=== PATIENT | male | born 1950 | race Caucasian/White ===

== ENCOUNTER 2018-05-18 17:05 | Observation (INO) | payer MEDICARE, BC ==
[~2018-05-18] VITALS: Ht 170.2 cm; Wt 80.4 kg
--- OUTSIDE RECORDS SUMMARY | 2018-05-18 17:07 | XMS REPORT | Clinical Summary ---
Author Author [facility] Address Unknown Phone Unavailable Care Team Providers Care Mental Health Program Manager Name Role Phone Endy Lozano MD PCP Allergies No Known Allergies Medications End Date Status Medication Sig Dispensed Refills Start Date Active lisinopril Take 20 mg by 0 (PRINIVIL,ZESTRIL) 20 mg mouth daily. tablet Active Problems Not on file Social History Date Tobacco Use Types Packs/Day Years Used Never Assessed Sex Assigned at Date Recorded Not on file Industry Job Start Date Occupation Not on file Not on file Not on file Travel End Travel History Travel Start No recent travel history available. Last Filed Vital Signs Not on file Plan of Treatment Health Maintenance Due Date Last Done Comments COLON CANCER SCREENING 2002 SHINGLES VACCINES (#1) 2002 INFLUENZA VACCINE 09/22/2017 65+ PNEUMOCOCCAL VACCINE 2017 (1 of 2 - PCV13) PNEUMOCOCCAL 2017 POLYSACCHARIDE VACCINE AGE 65 AND OVER Results Not on fileafter 05/17/2017 Insurance Payer Benefit Subscriber ID Type Phone Address Plan / Group [employer] [facility] xxxxxxxxxxxx Exchange EXCHANGE [facility] EXCHANGE [employer] Advance Directives Patient has advance care planning documents on file. For more information, june mendez contact: Rob Clarke [address] [place] [address]
[2018-05-18] MEDS ORDERED: ENALAPRILAT IV INJ 1.25 MG/ML VIAL IV STA (17:20)
[2018-05-18 17:54] LABS: BASOPHILS % 0.2 % (0.0-1.0); EOSINOPHILS # (AUTO) 0.2 (0.0-0.4); EOSINOPHILS % 3.5 % (0.0-6.0); HEMATOCRIT 50.6 % (38.2-49.6); HEMOGLOBIN 17.6 g/dL (14.0-18.0); LYMPHOCYTES % 35.6 % (18.0-39.1); MEAN CORPUSCULAR HEMOGLOBIN 30.1 pg (28-32); MEAN CORPUSCULAR HGB CONC 34.8 g/dL (31-35); MEAN CORPUSCULAR VOLUME 86.5 fL (81-99); MONOCYTES # (AUTO) 0.5 (0.2-0.8); MONOCYTES % 8.1 % (4.4-11.3); NEUTROPHILS % 52.4 % (38.7-80.0); PLATELET COUNT 184 x10e3/uL (140-360); RED BLOOD COUNT 5.85 x10e6/uL (4.3-5.7); RED CELL DISTRIBUTION WIDTH 11.6 % (11.7-14.4)
--- NOTE | 2018-05-18 18:13 | Diagnostic Imaging Report ---
Examination: CT head without contrast Clinical Indication: Headache. Dizziness. Hypertension. Technique: Transaxial noncontrast images from the skull base through the vertex were obtained. Sagittal and coronal reformatted images were done. Dose modulation, iterative reconstruction, and/or weight based adjustment of the mA/kV was utilized to reduce the radiation dose to as low as reasonably achievable. Comparison: None. Findings: Scalp: No abnormalities. Bones: Intact. No fractures. No blastic or lytic lesions. Brain sulci: Appropriate for patient's age. Ventricles: Normal in size and configuration. No hydrocephalus. Extra-axial space: No abnormalities. Parenchyma: No abnormal densities. No masses, hemorrhage, or acute or chronic cortical based vascular insults. Suprasellar region: No abnormalities. Craniocervical junction: The foramen magnum is patent. No Chiari one malformation. Impression: No intracranial abnormality. Signed by: Dr. Clemencia Mckeon M.D. on 05/18/2018 6:09 PM
[2018-05-18 18:16] LABS: ALANINE AMINOTRANSFERASE 23 IU/L (0-55); ALBUMIN 4.3 g/dL (3.5-5.0); ALBUMIN/GLOBULIN RATIO 1.1 (0.8-2.0); ALKALINE PHOSPHATASE 73 IU/L (40-150); ANION GAP 11.7 mmol/L (8-16); BLOOD UREA NITROGEN 15 mg/dL (7-26); BUN/CREATININE RATIO 13 (6-25); CALCIUM 9.2 mg/dL (8.4-10.2); CARBON DIOXIDE 29 mmol/L (22-29); CHLORIDE 100 mmol/L (98-107); CHOL/HDL RATIO 4.1 (3.9-4.7); CHOLESTEROL 227 MD/DL (0-199); CREATININE, SERUM 1.14 mg/dL (0.72-1.25); EST GLOMERULAR FILTRATION RATE > 60 ML/MIN (60-); GLUCOSE 97 mg/dL (74-118); HDL CHOLESTEROL 55 MG/DL (40-60); LDL CHOLESTEROL 139 MG/DL (60-130); POTASSIUM 3.7 mmol/L (3.5-5.1); SODIUM 137 mmol/L (136-145); TRIGLYCERIDES 163 MG/DL (0-149)
[2018-05-18] MEDS ORDERED: ONDANSETRON HCL INJ 2MG/ML 2ML 2 MG/ML VIAL IV PRN (18:30)
[2018-05-18] MEDS ORDERED: ENALAPRILAT IV INJ 1.25 MG/ML VIAL IV PRN (18:30)
[2018-05-18] MEDS ORDERED: SODIUM CHLORIDE FLUSH 10 ML SYR INJ PRN (18:30)
--- OUTSIDE RECORDS SUMMARY | 2018-05-18 18:49 | XMS REPORT | Clinical Summary ---
Author Author [facility] Address Unknown Phone Unavailable Care Team Providers Care Technical Sales Advisor Name Role Phone Endy Lozano MD PCP [...] ID Type Phone Address Plan / Group MD [employer] [facility] xxxxxxxxxxxx Exchange EXCHANGE [facility] [employer]CHANGE [employer] Advance Directives Patient has advance care planning documents on file. For more information, june mendez contact: Rob Clarke [address] [place] [address]
--- OUTSIDE RECORDS SUMMARY | 2018-05-18 18:49 | XMS REPORT ---
Author Author [facility] Address Unknown Phone Unavailable Care Team Providers Care Video Rental Clerk Name Role Phone Efrain ORO Unavailable Unavailable Problems This patient has no known problems. Allergies, Adverse Reactions, Alerts This patient has no known allergies or adverse reactions. Medications This patient has no known medications. Results Test Description Test Time Test Comments Text Results Atomic Results Result Comments CT BRAIN WO 2018-05-18 18:09:00 [place] [address] Patient Name: STEVE HOGUE MR #: [id number] : 1950 Age/Sex: 67/M Req #: [id number] Adm Physician: Ordered by: GRACIE ORO MD Report #: [id number] Location: ER Room/Bed: Procedure: [id number] CT/CT BRAIN WO Exam Date: 05/18/18 Exam Time: 1710 REPORT STATUS: Signed Examination: CT head without contrast Clinical Indication: Headache. Dizziness. Hypertension. Technique: Transaxial noncontrast images from the skull base through the vertex were obtained. Sagittal and coronal reformatted images were done. Dose modulation, iterative reconstruction, and/or weight based adjustment of the mA/kV was utilized to reduce the radiation dose to as low as reasonably achievable. Comparison: None. Findings: Scalp: No abnormalities. Bones: Intact. No fractures. No blastic or lytic lesions. Brain sulci: Appropriate for patient's age. Ventricles: Normal in size and configuration. No hydrocephalus. Extra- axial space: No abnormalities. Parenchyma: No abnormal densities. No masses, hemorrhage, or acute or chronic cortical based vascular insults. Suprasellar region: No abnormalities. Craniocervical junction: The foramen magnum is patent. No Chiari one malformation. Impression: No intracranial abnormality. Signed by: Dr. Clemencia Mckeon M.D. on 05/18/2018 6:09 PM Dictated By: CLEMENCIA RAMIRES MD 08 Transcribed By: FRAN on 05/18/181808 COPY TO: GRACIE ORO MD
[2018-05-18] MEDS: LOSARTAN POTASSIUM 100 MG TAB PO SCH (19:38)
[2018-05-18 20:05] VITALS: BP 168/96
[2018-05-18] MEDS: ATORVASTATIN 20 MG TAB PO SCH (20:24)
[2018-05-18 20:45] VITALS: BP 159/93
[2018-05-18 23:36] VITALS: BP 159/93
[2018-05-19] VITALS (10 sets, daily range): BP systolic 130–182; BP diastolic 67–93
--- NOTE | 2018-05-19 06:50 | NUR ---
rounded with shift mechanic nurse, patient aware of change and in no distress. call banuelos within reach and bed in lowest position
[2018-05-19] MEDS ORDERED: HYDROCHLOROTHIAZIDE 25 MG TAB PO SCH (09:00)
[2018-05-19] MEDS ORDERED: LOSARTAN POTASSIUM 100 MG TAB PO SCH (09:00)
[2018-05-19] MEDS: LOSARTAN POTASSIUM 100 MG TAB PO SCH (09:03)
[2018-05-19] MEDS ORDERED: LORAZEPAM INJ 2 MG/ML VIAL IV ONE (12:00)
[2018-05-19] MEDS ORDERED: LORAZEPAM 0.5 MG TAB PO PRN (15:00)
[2018-05-19] MEDS: HYDROCHLOROTHIAZIDE 25 MG TAB PO SCH ×2 (15:45→20:01)
[2018-05-19] MEDS: AMLODIPINE BESYLATE 5 MG TAB PO SCH (16:45)
--- NOTE | 2018-05-19 18:50 | NUR ---
rounded with rotary surface grinder nurse, patient aware of change and in no distress. call banuelos within reach and bed in lowest position.
[2018-05-19] MEDS: ATORVASTATIN 20 MG TAB PO SCH (20:01)
[2018-05-20 04:30] VITALS: BP 128/77
--- NOTE | 2018-05-20 06:50 | NUR ---
report received from night coordinator nurse, patient resting comfortably and in no distress. Call banuelos within reach and bed in lowest position.
[2018-05-20] MEDS: AMLODIPINE BESYLATE 5 MG TAB PO SCH (08:45)
[2018-05-20] MEDS: LOSARTAN POTASSIUM 100 MG TAB PO SCH (08:45)
[2018-05-20] MEDS: HYDROCHLOROTHIAZIDE 25 MG TAB PO SCH (08:45)
[2018-05-20 10:42] VITALS: BP 169/106
[2018-05-20 10:43] VITALS: BP 169/106
[2018-05-20] MEDS ORDERED: AMLODIPINE BESYL5 MG PO (11:04)
[2018-05-20] MEDS ORDERED: losartan/hctz PO (11:05)
[2018-05-20] MEDS ORDERED: HYDRALAZINE HCL25 MG PO (11:05)
[2018-05-20] MEDS ORDERED: ATIVAN0.5 MG PO (11:06)
[2018-05-20 11:20] VITALS: BP 144/87
--- NOTE | 2018-05-20 11:20 | NUR ---
patient alert and oriented. Discharge instructions given to patient at this time, patient verbalized understanding. IV removed at this time, catheter in tact and small dressing applied. Patient refused wheelchair assistance and will ambulate to personal auto to return home.
== END 2018-05-20 11:30 | disposition home or self-care (01) ==
LOC: ER 17:05 → ERHOLD 18:47 → IMCU 19:46
DX: I16.0 Hypertensive urgency (principal); R51 Headache; I10 Essential (primary) hypertension; Z82.49 Family history of ischemic heart disease and other diseases of the circulatory system; Z82.3 Family history of stroke; F41.9 Anxiety disorder, unspecified
CPT/HCPCS: 36415; 70450; 80053; 80061; 84484; 85025; 99284; G0378 ×3; J2060

== ENCOUNTER 2018-05-23 09:34 | Emergency (ER) | payer MEDICARE, BC ==
[~2018-05-23] VITALS: Ht 170.2 cm; Wt 80.3 kg
[~2018-05-23 09:34] MED LIST: AMLODIPINE BESYL5 MG PO; ATIVAN0.5 MG PO; HYDRALAZINE HCL25 MG PO; losartan/hctz PO
--- OUTSIDE RECORDS SUMMARY | 2018-05-23 09:36 | XMS REPORT | Clinical Summary ---
Author Author [facility] Address Unknown Phone Unavailable Care Team Providers Care Schedule Clerk Name Role Phone Endy Lozano MD PCP Allergies No Known Allergies Medications End Date Status Medication Sig Dispensed Refills Start Date Active lisinopril Take 20 mg by 0 (PRINIVIL,ZESTRIL) 20 mg mouth daily. tablet Active Problems Not on file Encounters Care Team Description Date Type Specialty Denny Wooten DO Dizziness (Primary Dx); Generalized anxiety disorder 05/21/2018 Emergency Emergency Medicine after 05/22/2017 Social History Date Tobacco Use Types Packs/Day Years Used Never Assessed Alcohol Use Drinks/Week oz/Week Comments Defer Sex Assigned at Date Recorded Not on file Industry Job Start Date Occupation Not on file Not on file Not on file Travel End Travel History Travel Start No recent travel history available. Last Filed Vital Signs Time Taken Vital Sign Reading 05/21/2018 7:30 PM CDT Blood Pressure 128/66 05/21/2018 7:30 PM CDT Pulse 89 05/21/2018 5:12 PM CDT Temperature 37.3 C (99.1 F) 05/21/2018 7:30 PM CDT Respiratory Rate 20 05/21/2018 7:30 PM CDT Oxygen Saturation 96% - Inhaled Oxygen - Concentration - Weight - - Height - - Body Mass Index - Plan of Treatment Health Maintenance Due Date Last Done Comments COLON CANCER SCREENING 2002 SHINGLES VACCINES (#1) 2002 65+ PNEUMOCOCCAL VACCINE 2017 (1 of 2 - PCV13) PNEUMOCOCCAL 2017 POLYSACCHARIDE VACCINE AGE 65 AND OVER INFLUENZA VACCINE 09/22/2018 Procedures Comments Procedure Name Priority Date/Time Associated Diagnosis BASIC METABOLIC PANEL Routine 05/21/2018 7:00 PM CDT ESTIMATED GFR Routine 05/21/2018 7:00 PM CDT ECG 12-LEAD STAT 05/21/2018 6:44 PM CDT HC COMPLETE BLD COUNT STAT 05/21/2018 W/AUTO DIFF 5:58 PM CDT after 05/22/2017 Results * Estimated GFR (05/21/2018 7:00 PM CDT) Estimated GFR 48 (A) mL/min/1.73 m2 [facility] Comment: [facility] CatergoryUnitsInte rpretation G1 >=90 Normal or high G2 60-89Mildly decreased [id number] Mildly to moderately decreased [id number] Moderately to severely decreased G4 15-29Severely decreased G5 <15Kidney failure The eGFR was calculated using the Chronic Kidney Disease Epidemiology Collaboration (CKD-EPI) equation. Interpretation is based on recommendations of the National Kidney Foundation-Kidney Disease Outcomes Quality Initiative (NKF-KDOQI) published in 2014. Specimen Plasma specimen Performing Organization Address City/[facility] Phone Number [facility] [id number] [place] [address] [place] [address] PATHOLOGY AND GENOMIC MEDICINE [address] * Basic metabolic panel (05/21/2018 7:00 PM CDT) Sodium 134 (L) 135 - 148 mEq/L [facility] Potassium 3.6 3.5 - 5.0 mEq/L [facility] Chloride 95 (L) 98 - 112 mEq/L [facility] CO2 24 24 - 31 mEq/L [facility] Anion gap 15@ANIO 7 - 15 mEq/L [facility] BUN 38 (H) 8 - 23 mg/dL [facility] Creatinine 1.50 (H) 0.70 - 1.20 mg/dL [facility] Glucose 119 (H) 65 - 99 mg/dL [facility] Calcium 10.0 8.8 - 10.2 mg/dL [facility] Specimen Plasma specimen Performing Organization Address [facility] Phone Number [facility] [email or web address]] [place] [address] [place] [address] PATHOLOGY AND GENOMIC MEDICINE [facility] [address] [place] [address] [facility] * ECG 12 lead (05/21/2018 6:44 PM CDT) Ventricular rate 95 [facility] Atrial rate 95 [facility] MO interval 138 [facility] QRSD interval 80 [facility] QT interval 354 [facility] QTC interval 444 [facility] P axis 1 67 [facility] QRS axis 1 -23 [facility] T wave axis 70 [facility] EKG impression Normal sinus [facility] rhythm-Nonspecific ST abnormality-Abnormal ECG-In automated comparison with ECG of 26-APR-2016 14:42,-No significant change was found- Narrative Performed At Performing Organization Address City/State/Zipcode Phone Number [facility] [address] [place] [address] * CBC with platelet and differential (05/21/2018 5:58 PM CDT) WBC 8.94 4.50 - 11.00 k/uL [facility] RBC 5.95 4.40 - 6.00 m/uL [facility] HGB 17.6 14.0 - 18.0 g/dL [facility] HCT 50.2 41.0 - 51.0 % [facility] MCV 84.4 82.0 - 100.0 fL [facility] MCH 29.6 27.0 - 34.0 pg [facility] MCHC 35.1 31.0 - 37.0 g/dL [facility] RDW - SD 34.6 (L) 37.0 - 55.0 fL [facility] MPV 9.3 8.8 - 13.2 fL [facility] Platelet count 183 150 - 400 k/uL [facility] Nucleated RBC 0.00 /100 WBC [facility] Neutrophils 70.1 (H) 39.0 - 69.0 % [facility] Lymphocytes 20.0 (L) 25.0 - 45.0 % [facility] Monocytes 8.6 0.0 - 10.0 % [facility] Eosinophils 0.9 0.0 - 5.0 % [facility] Basophils 0.2 0.0 - 1.0 % [facility] Specimen Blood Performing Organization Address City/State/Zipcode Phone Number [facility] [place] [id number] [place] [address] [place] [address] PATHOLOGY AND GENOMIC MEDICINE [facility] [address] [place] [address] [facility] after 05/22/2017 Insurance Payer Benefit Subscriber ID Type Phone Address Plan / Group BCBS BCBS xxxxxxxxxxxx PPO CHOICE PPO/FEDERA L EMPL PPO MEDICARE MEDICARE xxxxxxxxxx Medicare [place], [place] PART A AND B Advance Directives Patient has advance care planning documents on file. For more information, june mendez contact: [facility] [address] [place] [address]
[2018-05-23] MEDS ORDERED: LOSARTAN-HCTZ1 EAC1 PO (09:49)
== END 2018-05-23 09:54 | disposition home or self-care (01) ==
LOC: ER 09:34
DX: I10 Essential (primary) hypertension (principal)
CPT/HCPCS: 99282

== ENCOUNTER 2018-11-23 09:58 | Observation (INO) | payer MEDICARE, BC ==
[~2018-11-23] VITALS: Ht 170.2 cm; Wt 75.7 kg
[~2018-11-23 09:58] MED LIST changes: +LOSARTAN-HCTZ1 EAC1 PO
[2018-11-23] MEDS ORDERED: SODIUM CHLORIDE 0.9% 1000ML 1,000 ML IV STA (10:01)
[2018-11-23] MEDS ORDERED: ASPIRIN 81 MG CHEW TAB PO ONE ×2 (10:15→11:30)
[2018-11-23 10:21] LABS: BASOPHILS % 0.1 % (0.0-1.0); EOSINOPHILS # (AUTO) 0.1 (0.0-0.4); EOSINOPHILS % 1.3 % (0.0-6.0); HEMATOCRIT 42.1 % (38.2-49.6); HEMOGLOBIN 14.9 g/dL (14.0-18.0); LYMPHOCYTES # (AUTO) 1.1 (1.0-3.2); LYMPHOCYTES % 15.8 % (18.0-39.1); MEAN CORPUSCULAR HEMOGLOBIN 30.4 pg (28-32); MEAN CORPUSCULAR HGB CONC 35.4 g/dL (31-35); MEAN CORPUSCULAR VOLUME 85.9 fL (81-99); MONOCYTES # (AUTO) 0.5 (0.2-0.8); MONOCYTES % 7.2 % (4.4-11.3); NEUTROPHILS # (AUTO) 5.2 (2.1-6.9); NEUTROPHILS % 75.3 % (38.7-80.0); PLATELET COUNT 196 x10e3/uL (140-360); RED CELL DISTRIBUTION WIDTH 11.5 % (11.7-14.4)
[2018-11-23 10:28] LABS: AMPHETAMINES SCREEN,URINE NEGATIVE (NEGATIVE); BENZODIAZEPINES SCREEN,URINE NEGATIVE (NEGATIVE); PHENCYCLIDINE SCREEN,URINE NEGATIVE (NEGATIVE)
[2018-11-23 10:39] LABS: ALANINE AMINOTRANSFERASE 23 IU/L (0-55); ALBUMIN 4.2 g/dL (3.5-5.0); ALBUMIN/GLOBULIN RATIO 1.2 (0.8-2.0); ALKALINE PHOSPHATASE 68 IU/L (40-150); ANION GAP 12.7 mmol/L (8-16); BLOOD UREA NITROGEN 16 mg/dL (7-26); BUN/CREATININE RATIO 15 (6-25); CALCIUM 9.8 mg/dL (8.4-10.2); CARBON DIOXIDE 27 mmol/L (22-29); CHLORIDE 102 mmol/L (98-107); CREATINE KINASE 124 IU/L (30-200); CREATININE, SERUM 1.09 mg/dL (0.72-1.25); EST GLOMERULAR FILTRATION RATE > 60 ML/MIN (60-); GLUCOSE 102 mg/dL (74-118); POTASSIUM 3.7 mmol/L (3.5-5.1); SODIUM 138 mmol/L (136-145)
--- NOTE | 2018-11-23 10:54 | Diagnostic Imaging Report ---
EXAMINATION: Head CT HISTORY: Dizziness,, feeling faint, hypertension. COMPARISON: Head CT 05/18/2018 TECHNIQUE: Multidetector axial images were obtained without contrast from the foramen magnum to the vertex . The images were reconstructed using brain and bone algorithms. Thin section brain images were reformatted into coronal and sagittal planes. Image quality: Motion/streaking artifact limits the evaluation of the skull base and posterior cranial fossa. Dose modulation, iterative reconstruction, and/or weight based adjustment of the mA/kV was utilized to reduce the radiation dose to as low as reasonably achievable. FINDINGS: Parenchyma: 1. No abnormal densities. 2. No mass or hemorrhage. No CT evidence of acute territorial vascular insult. Extra-axial spaces:No abnormal density. No extra-axial fluid collections Brain volume: Normal for age. Ventricles: No hydrocephalus or displacement. Arteries: No density suggestive of thrombus. Dural sinuses: No abnormal density. Extra-axial spaces: No abnormal density. Foramen magnum: No mass, Chiari malformation, or basilar invagination. Sella: No obvious mass. Paranasal/mastoid sinuses: Imaged portions unremarkable. Skull/Scalp: No lytic or blastic lesions. No fractures. IMPRESSION: No intracranial abnormalities, particularly no hemorrhage. Unchanged compared to head CT of 05/18/2018. Signed by: Dr. Michaela Augustine M.D. on 11/23/2018 10:51 AM
[2018-11-23] MEDS ORDERED: SODIUM CHLORIDE 0.9% 1000ML 1,000 ML IV SCH (11:24)
[2018-11-23] MEDS ORDERED: ONDANSETRON HCL INJ 2MG/ML 2ML 2 MG/ML VIAL IV PRN (13:00)
[2018-11-23] MEDS ORDERED: MELATONIN 5 MG TABLET PO PRN (13:00)
[2018-11-23] MEDS ORDERED: HYDROCODONE/APAP 5MG-325MG TAB PO PRN (13:00)
[2018-11-23] MEDS ORDERED: ACETAMINOPHEN 325 MG TAB PO PRN (13:00)
[2018-11-23] MEDS ORDERED: HYDRALAZINE HCL 20 MG/ML VIAL IV PRN (13:00)
[2018-11-23 13:10] VITALS: BP 162/87
[2018-11-23 13:24] VITALS: BP 162/87
[2018-11-23 13:34] VITALS: BP 162/87
[2018-11-23] MEDS ORDERED: PAXIL10 MG (15:46)
--- NOTE | 2018-11-23 16:25 | NUR ---
Received patient from OBS. Awake and alert x4. Respiration even and unlabored without SOB. Call light in reach.
[2018-11-23 18:34] LABS: CREATINE KINASE MB 1.4 ng/mL (0-5.0)
[2018-11-23 19:00] VITALS: BP 181/88
--- NOTE | 2018-11-23 19:09 | NUR ---
Report given to fast food shift lead. Respiration even and unlabored without SOB. Call light in reach.
--- NOTE | 2018-11-23 19:26 | NUR ---
Received report from previous nurse. Call light within reach. at bedside. Patient in bed.
[2018-11-23 19:45] LABS: INR 0.94; PROTHROMBIN TIME 13.1 seconds (11.9-14.5)
[2018-11-23 19:46] LABS: PARTIAL THROMBOPLASTIN TIME 28.6 seconds (23.8-35.5)
--- NOTE | 2018-11-23 20:00 | NUR ---
Patient is leaving to CT. Patient in no pain or distress. Patient left via wheelchair.
[2018-11-23] MEDS ORDERED: IOPAMIDOL 370 MG/ML 200 ML INFUS..BTL INJ ONE (20:04)
[2018-11-23] MEDS ORDERED: SODIUM CHLORIDE 0.9% 50ML 50 ML ONE (20:04)
--- NOTE | 2018-11-23 20:27 | NUR ---
patient arrived back from CT. Patient in no pain or distress.
[2018-11-23 20:54] VITALS: BP_SYST 166; BP_SYST 181; BP_DIAS 88
[2018-11-23 21:39] LABS: BILIRUBIN,URINE NEGATIVE (NEGATIVE); CLARITY,URINE CLEAR (CLEAR); KETONES,URINE NEGATIVE (NEGATIVE); LEUKOCYTE ESTERASE ,URINE NEGATIVE (NEGATIVE); NITRITE,URINE NEGATIVE (NEGATIVE); PROTEIN,URINE DIPSTICK NEGATIVE (NEGATIVE); URINE UROBILINOGEN 0.2 mg/dL (0.2 - 1)
[2018-11-23 21:40] LABS: COLOR,URINE COLORLESS (YELLOW)
[2018-11-23] MEDS ORDERED: LORAZEPAM INJ 2 MG/ML VIAL IV STA (22:00)
--- NOTE | 2018-11-23 22:12 | Diagnostic Imaging Report ---
EXAM: CT Chest WITH contrast 11/23/2018 7:02 PM INDICATION: Pulmonary embolism. COMPARISON: None TECHNIQUE: Chest was scanned utilizing a multidetector helical scanner from the lung apex through the level of the adrenal glands without administration of IV contrast. Coronal and sagittal reformations were obtained. Pulmonary embolism protocol was performed. IV CONTRAST: 100 mL isovue 300 RADIATION DOSE: Total DLP: 555.95 mGy*cm Estimated effective dose: (DLP x 0.014 x size factor) mSv COMPLICATIONS: None FINDINGS: LINES/ TUBES: None. LUNGS AND AIRWAYS: Filling defects within the posterior right lower lobe pulmonary arteries on image 71 and 72 series 2 consistent with pulmonary images embolism. PLEURA: The pleural spaces are clear. HEART AND MEDIASTINUM: The thyroid gland is normal. No mediastinal, hilar or axillary lymphadenopathy. The heart is normal in size.. There is no pericardial effusion. UPPER ABDOMEN: Limited non-contrast views of the upper abdomen show no abnormality within the visualized liver, spleen, pancreas, or kidneys. The adrenal glands are normal. BONES: There are degenerative changes in the thoracic spine. SOFT TISSUES: Unremarkable. IMPRESSION: Acute pulmonary embolism involving posterior right lower lobe pulmonary arteries. Dr. Dolan was notified] 9:40 PM on 11/23/2018. Signed by: Dr. Ekta Mcgraw M.D. on 11/23/2018 10:08 PM
[2018-11-23] MEDS ORDERED: LORAZEPAM 0.5 MG TAB PO PRN (22:30)
[2018-11-23] MEDS ORDERED: LOSARTAN POTASSIUM 100 MG TAB PO SCH (22:30)
[2018-11-23] MEDS: PAROXETINE HCL 20 MG TAB PO SCH (22:30)
[2018-11-23 22:32] VITALS: BP 137/85
[2018-11-23] MEDS: APIXABAN 5 MG TABLET PO SCH (22:46)
[2018-11-24] VITALS (9 sets, daily range): BP systolic 119–172; BP diastolic 68–85
--- NOTE | 2018-11-24 01:58 | Consultation ---
DATE OF CONSULTATION: 11/23/2018 Cardiac Consultation REASON FOR CONSULTATION: Near syncope. HISTORY: This is a 67-year-old gentleman diagnosed with hypertension 6 months ago, very physically active. He was here at this institution. He was dismissed home on 3 medications, amlodipine 5 mg a day, hydralazine 25 mg t.i.d., and losartan/hydrochlorothiazide 100/25 one tablet a day. This caused him severe hypotension. He was seen by his physician and he has decreased to amlodipine 5 mg a day, and he noted him to be very anxious man, so I started him on Paxil 10 mg a day. The patient 2 weeks ago had radical prostatectomy in [facility]. He was started on Cialis 7.5 mg a day and increased to 25 mg a day. The patient noted he is having several episodes of near blanking out and vision disturbance and not feeling well. He noted also his blood pressure to be elevated. He came to the emergency room. He had CT head, which reported showing no major abnormality. His blood pressure was 160/80. He is very anxious and this would probably let his blood pressure to go by far much higher. Regardless, no arrhythmias noted. Admitted for further management. Cardiac consultation is obtained. In his chart, I cannot find his EKG; however, his telemetry showed normal sinus rhythm. He had carotid Doppler, which showed no major abnormality. REVIEW OF SYSTEMS: GENERAL: No fever. No chills. HEENT: No vision problem. No hearing problem. PULMONARY AND CARDIAC: No cough. No hemoptysis. No palpitation. No orthopnea. No paroxysmal nocturnal dyspnea. GI: No hematemesis. No melena. : Having problem with urination and having erectile dysfunction. SOCIAL HISTORY: He is . He is nonsmoker and non-alcohol drinker. He owns a [employer]. PAST MEDICAL HISTORY: 1. Hypertension. 2. Radical prostatectomy. 3. Chronic severe headache all his life. FAMILY HISTORY: Father at age 85 of old age. Mother at age 85 with tumor. Two brother, one brother hypertensive, one sister, three healthy children except. PHYSICAL EXAMINATION: VITAL SIGNS: Height of 5 feet 7 inches, weight of 167 pounds, blood pressure 160/80, heart rate of 70, respiratory rate of 18. HEENT: Pupils are equal and reactive. NECK: No elevation of jugular venous pulsation. No bruit. CHEST: Clear to auscultation and percussion. HEART: PMI in the fifth left intercostal space. Normal first and second heart sounds. ABDOMEN: Soft with good bowel sounds. EXTREMITIES: No cyanosis, no clubbing, no edema. No signs of deep venous thrombosis. NEUROLOGIC: Awake, alert, and oriented. No motor or sensory deficits. LABORATORY DATA: Sodium of 138, potassium 3.7, BUN of 16, creatinine of 1.09. White blood cell count of 6.9, hemoglobin of 14.9, hematocrit 42%, and platelet count of 196,000. EKG not available. There is no chest x-ray. CT head showed no major abnormalities. IMPRESSION AND PLAN: 1. Hypertension. 2. Anxiety. 3. Recent radical prostatectomy on October 29. Oakes catheter on November 08. 4. Near syncope, possible related to Cialis use or variation of blood pressure. I doubt hypertension to be the cause of his symptoms. Cardiac hicks my recommendation, observation on telemetry. His echo and cardiogram are already normal. The patient needs to have chest x-ray. He needs to have CT chest just to rule out the remote probability of pulmonary emboli with radical prostatectomy. Observe blood pressure off medication and observe him on telemetry. Repeat lab. Differential diagnosis are discussed and explained. MD YASMIN Soria/MARIANNE /[id number]
[2018-11-24 02:47] LABS: CREATINE KINASE MB 1.1 ng/mL (0-5.0)
[2018-11-24 05:59] LABS: BASOPHILS % 0.2 % (0.0-1.0); EOSINOPHILS # (AUTO) 0.1 (0.0-0.4); EOSINOPHILS % 2.6 % (0.0-6.0); HEMATOCRIT 38.1 % (38.2-49.6); HEMOGLOBIN 13.4 g/dL (14.0-18.0); LYMPHOCYTES # (AUTO) 1.5 (1.0-3.2); LYMPHOCYTES % 29.6 % (18.0-39.1); MEAN CORPUSCULAR HEMOGLOBIN 30.4 pg (28-32); MEAN CORPUSCULAR HGB CONC 35.2 g/dL (31-35); MEAN CORPUSCULAR VOLUME 86.4 fL (81-99); MONOCYTES # (AUTO) 0.5 (0.2-0.8); MONOCYTES % 9.9 % (4.4-11.3); NEUTROPHILS # (AUTO) 2.8 (2.1-6.9); NEUTROPHILS % 57.3 % (38.7-80.0); PLATELET COUNT 166 x10e3/uL (140-360); RED BLOOD COUNT 4.41 x10e6/uL (4.3-5.7); RED CELL DISTRIBUTION WIDTH 11.6 % (11.7-14.4)
[2018-11-24 06:43] LABS: ALANINE AMINOTRANSFERASE 18 IU/L (0-55); ALBUMIN 3.3 g/dL (3.5-5.0); ALBUMIN/GLOBULIN RATIO 1.1 (0.8-2.0); ALKALINE PHOSPHATASE 57 IU/L (40-150); ANION GAP 10.6 mmol/L (8-16); BLOOD UREA NITROGEN 16 mg/dL (7-26); BUN/CREATININE RATIO 16 (6-25); CALCIUM 8.9 mg/dL (8.4-10.2); CARBON DIOXIDE 27 mmol/L (22-29); CHLORIDE 105 mmol/L (98-107); CHOLESTEROL 176 MD/DL (0-199); CREATININE, SERUM 0.98 mg/dL (0.72-1.25); EST GLOMERULAR FILTRATION RATE > 60 ML/MIN (60-); GLUCOSE 98 mg/dL (74-118); HDL CHOLESTEROL 44 MG/DL (40-60); LDL CHOLESTEROL 119 MG/DL (60-130); POTASSIUM 3.6 mmol/L (3.5-5.1); SODIUM 139 mmol/L (136-145); TRIGLYCERIDES 64 MG/DL (0-149)
--- NOTE | 2018-11-24 06:44 | History and Physical ---
CHIEF COMPLAINT: Dizziness, elevated blood pressure. HISTORY OF PRESENT ILLNESS: This is a 67-year-old male, very nice and pleasant, has a history of anxiety disorder, had a history of prostate cancer many months ago. He reportedly had a resection performed in the [facility], had a Oakes catheter for significant number of weeks, but recently removed last month. Follows up with a urologist in the [facility]. Also, history of hypertension. He came into the ED after he reports having a presyncopal episode that occurred during work today. Reports he felt very lightheaded and dizzy, but did not feel like he wanted to pass out. According to the history, apparently the patient has had this similar problem in the past. He was diagnosed with anxiety and was given some Ativan. He was very compliant with his antihypertensive medications as he was given them, but he noticed that his blood pressure would drop tremendously and he stopped taking it several months ago. He now reports to the emergency room, found to have elevated blood pressure systolically 192. He was given some oral antihypertensive medications. Right now, his current blood pressure is 137/85. During my evaluation, the patient had a panic disorder, in which he was very anxious, he is worried about his blood pressure. I stopped his IV fluids and gave him a little small dose of Ativan 0.5 mg IV x1. After further discussion, the reports that he has a history of anxiety. His CT of chest showed acute pulmonary embolism. When I gave him that news, the patient was very anxious and was very concerned. The patient was seen and evaluated at bedside on the medical floor. He is currently doing much better after seeing him twice at this time. REVIEW OF SYSTEMS: 1. Pertinent positives: Lightheadedness, dizziness. 2. Pertinent negatives: Denies any chest pain, palpitation, nausea, vomiting, diarrhea, dysuria, hematuria, frequency, urgency, abdominal pain, headache, shortness of breath, cough, congestion, fever, or any other complaints. The rest of 14-point review of systems have been reviewed with the patient and are negative. ALLERGIES: NO KNOWN DRUG ALLERGIES. HOME MEDICATIONS: He takes Paxil 10 mg daily, losartan/hydrochlorothiazide 100/25 mg one tab p.o. daily, amlodipine 5 mg p.o. b.i.d., hydralazine 25 mg p.o. t.i.d., lorazepam 0.5 mg p.o. q.i.d. p.r.n. for anxiety. PAST MEDICAL HISTORY: Hypertension, anxiety, history of prostate cancer, status post resection performed in June of 2018. PAST SURGICAL HISTORY: He had a prostate resection reportedly due to prostate cancer, not on any chemotherapy or any radiation. PAST FAMILY HISTORY: Hypertension and diabetes. SOCIAL HISTORY: No drugs. No alcohol. Does not smoke. He is . He has children. He is a chiropractor. PHYSICAL EXAMINATION: VITAL SIGNS: Temperature 98.7, pulse 84, respiratory rate 19, blood pressure currently 137/85, and pulse ox 96% on room air. GENERAL: Not in acute distress. Alert and oriented x3. Cooperative on examination. HEENT: Head; normocephalic and atraumatic. Eyes; pupils are equal, round, and reactive to light bilaterally. Extraocular movements intact bilaterally. NECK: Supple. Good range of motion. PULMONARY: Clear to auscultation bilaterally. No wheezing, no rales, no rhonchi, no crackles appreciated. CARDIOVASCULAR: Positive S1, S2. No murmurs, rubs, or gallops. ABDOMEN: Soft, nondistended, and nontender to palpation. Bowel sounds present. MUSCULOSKELETAL: Strength is 5/5 throughout. No evidence of any muscle deficits on examination. No weakness appreciated. NEUROLOGIC: Cranial nerves II through XII grossly intact. No evidence of any neurological deficits on exam. SKIN: Intact. Warm to touch. Good cap refill. PSYCHIATRIC: Normal affect and mood. EXTREMITIES: No edema. Good range of motion throughout. LABORATORY FINDINGS: Show white count 6.9, hemoglobin 14.9, hematocrit 42, platelets of 196. Coagulation; PT 13, INR 0.94, PTT 28.6, D-dimer 2.5. Chemistry; sodium 138, potassium 3.7, chloride 102, bicarb 27, anion gap is 12, BUN is 16, creatinine is 1, glucose 102, calcium 9.8, total bilirubin was 1.3, AST 25, ALT 23, alk phos 68, CK 124. Troponins are negative. Total protein 7.7, albumin is 4.2. Urinalysis negative. Urine drug screen negative. MICROBIOLOGY: None. IMAGING STUDIES: CT of brain was found to be negative. CT, PE protocol found to be with acute pulmonary embolism involving the posterior right lower lobe arteries. Carotid ultrasound is pending. A 2D echo is pending. IMPRESSION: 1. Hypertensive urgency, likely secondary to underlying generalized anxiety. 2. History of anxiety with panic disorder. 3. Acute pulmonary embolism. 4. History of prostate cancer, currently not on any treatment in which he reports now all clear. PLAN: At this time, the patient was very anxious during my examination. He was given Ativan 0.5 mg IV x1, in which he calmed down. Apparently, he has a history of panic disorder in the past. We will go ahead and put him on Ativan 0.5 mg p.o. t.i.d. p.r.n. for anxiety. Restart his Paxil. In terms of his antihypertensive medications, we will just go ahead and put him on a low-dose of losartan 50 mg p.o. b.i.d. Stop IV fluids. He will be on p.r.n. hydralazine as needed. In terms of his acute pulmonary embolism, I will go ahead and start him on Eliquis 10 mg p.o. b.i.d. for loading dose for 7 days and then 5 mg p.o. b.i.d. thereafter. I did discuss with the patient about any kind of bleeding, hemoptysis, hematemesis, GI bleeds, or anything or any hematuria, which he currently denies any sort of bleeding disorder at this time or any kind of active bleeding. I did get Hematology involved as well to come further evaluate. Cardiology was consulted for his underlying syncope as well and a carotid ultrasound, 2D echo have been ordered. We will start him on a regular diet. Encourage ambulation. He is on Eliquis for underlying DVT and also acute PE treatment. At this time, I discussed plan of care with the patient, family at bedside including the nursing staff and they all verbalized understanding and agrees to plan of care. I did give him some melatonin for sleeping aid as well. MD KAYLIN Reese/MARIANNE /[id number]
--- NOTE | 2018-11-24 07:19 | NUR ---
Patient in bed. Call light within reach. Gave report to oncoming nurse.
[2018-11-24] MEDS: APIXABAN 5 MG TABLET PO SCH ×2 (08:25→17:00)
[2018-11-24] MEDS ORDERED: AMLODIPINE BESYLATE 5 MG TAB ONE (08:44)
[2018-11-24] MEDS: AMLODIPINE BESYLATE 5 MG TAB PO SCH ×2 (08:54→21:56)
[2018-11-24] MEDS: PAROXETINE HCL 20 MG TAB PO SCH (08:55)
[2018-11-24] MEDS ORDERED: ASPIRIN 325 MG TAB PO SCH (09:00)
--- NOTE | 2018-11-24 11:02 | NUR ---
MD CHRIS INTO SEE PT, DISCUSSED POC
[2018-11-24] MEDS ORDERED: LORAZEPAM 1 MG TAB PO PRN (11:15)
[2018-11-24] MEDS ORDERED: LORAZEPAM 0.5 MG TAB PO ONE (12:00)
--- NOTE | 2018-11-24 12:20 | Progress Note ---
DATE: 11/24/2018 Medicine Progress Note SUBJECTIVE: The patient is much more calmer this morning. He did feel like he was a little bit more anxious just a little bit more when he woke up, but he was given some Ativan and now he has improved tremendously. He has no other complaints. No chest pain. No palpitations. His blood pressure was slightly elevated in which he was concerned, but was given some Ativan to see if that will help him calmed down. PHYSICAL EXAMINATION: VITAL SIGNS: Temperature is 97.8, pulse 73, respiratory rate is 18, blood pressure is 172/84, pulse ox 97% on room air. GENERAL: No acute distress, alert and oriented x3. Cooperative on examination. HEENT: Head is normocephalic and atraumatic. Eyes; pupils are equal, round, and reactive to light bilaterally. Extraocular movements are intact bilaterally. NECK: Supple. Good range of motion. Throat; no evidence of erythema or exudates in the posterior pharynx. Has poor dentition. PULMONARY: Clear to auscultation bilaterally. No wheezing, rales, or rhonchi. No crackles appreciated. CARDIOVASCULAR: Positive S1, S2. No murmurs, rubs, or gallops appreciated. ABDOMEN: Soft, nondistended, and nontender to palpation. Bowel sounds present. MUSCULOSKELETAL: Strength is 5/5 throughout. No evidence of any muscle deficits on examination. No weakness appreciated. NEUROLOGICAL: Cranial nerve II through XII grossly intact. No evidence of any neurological deficits on exam. SKIN: Intact. Warm to touch. Good cap refill. PSYCHIATRIC: Normal affect and mood. EXTREMITIES: No edema. Good range of motion throughout. LAB FINDINGS: Show white count 4.9, hemoglobin 13, hematocrit 38, and platelets 166. Chemistry; sodium 139, potassium 3.6, chloride 105, bicarb 27, anion gap of 10, BUN 16, creatinine 0.98, glucose 98, calcium 8.9. LFTs reviewed and stable. Albumin 3.3. TSH is 1.5. Troponins were all negative. IMAGING STUDIES: Reviewed. CT chest shows acute pulmonary embolism. CT brain was negative. Carotid Doppler is pending. IMPRESSION: 1. Hypertension urgency, likely secondary to underlying generalized anxiety. 2. History of anxiety with panic disorder. 3. Acute pulmonary embolism. 4. History of prostate cancer, currently not on any treatment which he reports now all negative. PLAN: At this time, his blood pressure is slightly elevated this morning, but I feel like this is probably from his anxiety in which he really has p.r.n. Ativan, which he has received one dose this morning. He will continue with his amlodipine that he takes at home 5 mg twice a day. We are going to monitor his blood pressure very closely. In relation to his anxiety and panic disorder, I will go ahead and restart him back on his Paxil. He is on p.r.n. Ativan. I will go ahead and get a Psychiatry consultation. I feel this will be very beneficial for the patient. In relation to his pulmonary embolism, he is on the loading dose of Eliquis 10 mg twice a day for seven total days. He has received his 1st dose last night. He will go 5 mg twice daily thereafter and Hematology was consulted. As per cardiology, there was a carotid ultrasound and a 2D echo, which is still pending. He will be on a regular diet, encourage ambulation. He is on Eliquis for DVT prophylaxis as well as PE treatment. I discussed plan of care with the patient, nursing staff at bedside and they verbalized understanding. MD KAYLIN Reese/MARIANNE /[id number]
[2018-11-24] MEDS ORDERED: ONDANSETRON HCL 4 MG ORAL DISINTEGRATING TAB PO PRN (13:15)
--- NOTE | 2018-11-24 14:00 | NUR ---
AMBULATING IN HALLWAY, STEADY GAIT
[2018-11-24] MEDS ORDERED: CLONAZEPAM 0.5 MG TAB PO PRN (17:15)
--- NOTE | 2018-11-24 18:01 | NUR ---
ZUNILDA PINA INTO SEE PT, DISCUSSED POC
--- NOTE | 2018-11-24 19:00 | NUR ---
Received report from previous nurse. Call light within reach. Patient in bed.
[2018-11-24] MEDS: CLONAZEPAM 0.5 MG TAB PO SCH (21:56)
[2018-11-25] VITALS: BP 129/82
--- NOTE | 2018-11-25 00:58 | Consultation ---
DATE OF CONSULTATION: 11/24/2018 Psychiatric Consultation The patient is evaluated and events noted. REASON FOR CONSULTATION: To evaluate the patient's anxiety. HISTORY OF PRESENT ILLNESS: The patient is a 67-year-old male admitted to the hospital for dizziness and hypertension. Psychiatric consultation is called to evaluate the patient's mood. As per medical record, the patient has a history of anxiety disorder, prostate cancer, hypertension. Upon evaluation today, the patient was found to be sitting in the room. He is alert, awake, and oriented to situation. He claims that he is hospitalized and has been feeling anxious and stressed due to his health issues. He recently received Ativan 0.5 mg, but did not last long. It has recently been increased. The patient claims he was taking Paxil from his primary care doctor, but because he did not have much stressors at home that he could not tell if the medication was working or not. The patient denies any depression. He denies any feelings of hopelessness or helplessness. He denies any hallucination. He denies any suicidal ideation. He reports sleeping and eating okay. The patient is anxious and worry about new medication in general. Had an extensive discussion with the patient regarding his medication. He finally agrees that he would like to get Klonopin to take in addition to Paxil. He denies any hallucination. He is calm and cooperative at this time. PAST PSYCHIATRIC HISTORY: The patient denies past psychiatric history. He denies past suicide attempts. He denies alcohol or drug use. FAMILY HISTORY: The patient denies. SOCIAL HISTORY: The patient lives with his and 3 kids. His previous job was a chiropractor. MENTAL STATUS EXAM: The patient is an elderly male. He is alert, awake, and oriented to situation. Mood is anxious. He denies any suicidal or homicidal ideation. He denies any hallucination. Affect congruent with mood. Thought process is concrete. No delusion elicited. Insight and judgment are fair. Memory appears to be grossly intact. CURRENT MEDICATIONS: 1. Amlodipine. 2. Eliquis. 3. Paxil 10 mg p.o. daily. 4. Ativan 1 mg p.o. 3 times a day. 5. Acetaminophen. 6. [place]. 7. Hydralazine. 8. Melatonin. 9. Zofran. CURRENT LABS: WBC 4.94, RBC 4.41, hemoglobin 13.4, hematocrit 38.1, platelets 166. Sodium 139, potassium 3.6, chloride 105, CO2 of 27, BUN 16, creatinine 0.98, AST 20, ALT 18. OBJECTIVE: VITAL SIGNS: Currently blood pressure 137/83, heart rate 70, respiratory 18, pulse ox 98%. ASSESSMENT: Generalized anxiety disorder. PLAN: 1. Discontinue Ativan p.r.n. 2. Add Klonopin 0.5 mg p.o. q.12 hours. 3. Add Klonopin 0.5 mg p.o. q.6 hours p.r.n. 4. Continue Paxil 10 mg p.o. daily. 5. Supportive therapy. 6. Monitor for mood. Thank you for this consultation. Dictated by Dianna Arciniega PA-C Ellie Welch MD QTV/MODL /[id number]
[2018-11-25 04:00] VITALS: BP 118/78
[2018-11-25 05:54] LABS: BASOPHILS % 0.2 % (0.0-1.0); EOSINOPHILS # (AUTO) 0.2 (0.0-0.4); EOSINOPHILS % 3.3 % (0.0-6.0); HEMATOCRIT 41.4 % (38.2-49.6); HEMOGLOBIN 14.4 g/dL (14.0-18.0); LYMPHOCYTES # (AUTO) 1.6 (1.0-3.2); LYMPHOCYTES % 27.2 % (18.0-39.1); MEAN CORPUSCULAR HGB CONC 34.8 g/dL (31-35); MEAN CORPUSCULAR VOLUME 86.3 fL (81-99); MONOCYTES # (AUTO) 0.6 (0.2-0.8); MONOCYTES % 9.4 % (4.4-11.3); NEUTROPHILS # (AUTO) 3.5 (2.1-6.9); NEUTROPHILS % 59.7 % (38.7-80.0); PLATELET COUNT 182 x10e3/uL (140-360); RED CELL DISTRIBUTION WIDTH 11.4 % (11.7-14.4)
[2018-11-25 06:08] LABS: BLOOD UREA NITROGEN 15 mg/dL (7-26); BUN/CREATININE RATIO 15 (6-25); CALCIUM 9.4 mg/dL (8.4-10.2); CARBON DIOXIDE 29 mmol/L (22-29); CHLORIDE 102 mmol/L (98-107); CREATININE, SERUM 1.03 mg/dL (0.72-1.25); EST GLOMERULAR FILTRATION RATE > 60 ML/MIN (60-); GLUCOSE 96 mg/dL (74-118); SODIUM 138 mmol/L (136-145)
--- NOTE | 2018-11-25 07:09 | NUR ---
Gave report to oncoming nurse. Call light within reach. Patient in bed.
[2018-11-25 08:24] VITALS: BP 140/86
[2018-11-25] MEDS: CLONAZEPAM 0.5 MG TAB PO SCH (08:33)
[2018-11-25] MEDS: PAROXETINE HCL 20 MG TAB PO SCH (08:33)
[2018-11-25] MEDS: AMLODIPINE BESYLATE 5 MG TAB PO SCH (08:33)
[2018-11-25] MEDS: APIXABAN 5 MG TABLET PO SCH (08:33)
[2018-11-25] MEDS ORDERED: KLONOPIN0.5 MG (09:44)
[2018-11-25] MEDS ORDERED: PAXIL10 MG (09:44)
[2018-11-25] MEDS ORDERED: NORVASC5 MG PO (09:45)
--- NOTE | 2018-11-25 17:28 | Consultation ---
DATE OF CONSULTATION: 11/24/2018 REQUESTING PHYSICIAN: Sarah Dolan MD. CONSULTING PHYSICIAN: Artie Olguin MD, Hematology-Oncology Service. REASON FOR CONSULTATION: Evaluation and management of patient with recent diagnosis of prostate cancer and now presents with pulmonary embolism. HISTORY OF PRESENTING ILLNESS: Mr. Bledsoe is a very pleasant 67-year-old gentleman with a known history of anxiety disorder, who was recently diagnosed with prostate cancer with [place] score of 8. He underwent prostatectomy in [facility]. One lymph node was positive and PET active suggestive of metastatic disease to the lymph node. He was discharged home, but apparently now presented to the Emergency Department due to presyncopal episode. He underwent workup including CT scan of the chest revealing acute pulmonary embolism. The patient has been started on anticoagulation initially with Lovenox and then switched to Eliquis. Hematology-Oncology has been consulted to assist with the management. Presently, the patient is lying comfortably, not in acute distress, breathing normally. He is very anxious. He has been receiving Ativan for severe anxiety. PAST MEDICAL HISTORY: 1. Recent diagnosis of [place] 8 prostate cancer, status post prostatectomy with lymph node positive status. 2. Severe anxiety disorder. 3. Hypertension. PAST SURGICAL HISTORY: Prostatectomy. FAMILY HISTORY: Positive for hypertension and diabetes. SOCIAL HISTORY: Denies history of smoking, alcohol use, or illicit drug use. He is and is a chiropractor, who lives in [place]. ALLERGIES: NO KNOWN DRUG ALLERGIES. CURRENT MEDICATIONS: Reviewed as per electronic medical record. REVIEW OF SYSTEMS: A 14-point review of systems negative except as mentioned per history of present illness. PHYSICAL EXAMINATION: VITAL SIGNS: Reviewed as per electronic medical record. HEENT: PERRLA. Extraocular movement intact. Head is atraumatic and normocephalic. NECK: Supple. CVS: S1, S2 audible. RESPIRATORY: Decreased bilateral air entry. ABDOMEN: Soft. Positive bowel sounds. EXTREMITIES: Negative edema. NEURO: The patient is alert and awake. LABORATORY DATA: Reviewed as per electronic medical record. ASSESSMENT AND PLAN: Mr. Bledsoe is a very pleasant 67-year-old gentleman with known history of hypertension and severe anxiety disorder, recently diagnosed with [place] 8 prostate cancer, subsequently underwent prostatectomy and now presents with shortness of breath and presyncopal episode. He underwent workup including CT chest revealing acute pulmonary embolism. Hematology-Oncology has been consulted to assist with the management. I reviewed the records and discussed at length with the patient about his condition and importance of monitoring of further workup for prostate cancer. He has a very high-grade [place] 8 prostate cancer. Recent imaging at [facility] showed positive lymph node status. He needs further workup with outpatient setting including PET-CT scan to rule out any metastatic disease. If disease localized, he may need localized radiation treatment with adjuvant hormonal treatment. From a pulmonary embolism standpoint, the patient already has been started on anticoagulation and presently appropriately switched to Eliquis. We will closely monitor and likely etiology of thromboembolic disease provoke due to recent diagnosis of malignancy. The patient also has severe anxiety disorder and presently in significant distress due to anxiety. He is going to be seen and evaluated by psychiatry. He is presently receiving Ativan. Thank you for the consult. I will continue to be available. Please call with questions. Artie Olguin MD IJ/MODL /[id number] cc: MD Sarah Medrano MD Mohamed O Jeroudi, MD
--- NOTE | 2018-11-26 01:24 | Progress Note ---
DATE: 11/25/2018 CHIEF COMPLAINT: Patient with recent diagnosis of prostate cancer and pulmonary embolism. OBJECTIVE: VITAL SIGNS: Reviewed as per electronic medical record. HEENT: Head is atraumatic and normocephalic. NECK: Supple. CVS: S1 and S2 audible. RESPIRATORY: Decreased bilateral air entry. ABDOMEN: Soft. Positive bowel sounds. EXTREMITIES: Negative edema. NEURO: Patient is alert and awake. LABORATORY DATA: Reviewed as per electronic medical record. ASSESSMENT AND PLAN: Mr. Bledsoe is a very pleasant 68-year-old gentleman with known history of hypertension and severe anxiety disorder, recently diagnosed with [place] 8 prostate cancer, subsequently prostatectomy and now presents with shortness of breath and presyncopal episode. He underwent workup including CT chest revealing acute pulmonary embolism. He has been started on anticoagulation with Eliquis. He is tolerating well. He also has prostate cancer with recent diagnosis. He needs an outpatient workup. I have advised him to follow up in outpatient setting. Case has been discussed with the primary care provider as well as primary attending. MD MARIA DEL ROSARIO Rankin/MARIANNE /[id number]
--- NOTE | 2018-11-26 02:57 | Discharge Summary ---
FINAL DISCHARGE DIAGNOSES: 1. Acute pulmonary embolism. 2. History of prostate cancer. 3. Generalized anxiety disorder. 4. Near-syncope, likely from Cialis but now improved. CONSULTANTS: Psychiatry, Hematology, Cardiology. VITAL SIGNS: Temperature is 98.6, pulse 71, respiratory rate 17, blood pressure is 140/86, pulse ox 98% on room air. LAB FINDINGS: Show white count 5.8, hemoglobin 14, hematocrit is 41, platelets of 182. PT 13, INR 0.94, PTT 28.6. D-dimer 2.5. Chemistry: Sodium 138, potassium 4, chloride 102, bicarbonate 29, anion gap of 11, BUN 15, creatinine is 1, glucose is 96, calcium is 9.4. His troponins were all negative. CK is 91, total protein 6.3, albumin 3.3, LDL was 119, TSH is 1.5. Urinalysis was negative. Urine drug screen was negative. MICROBIOLOGY: None. IMAGING STUDIES: CT brain shows no intracranial abnormality. Carotid Doppler was normal. 2D echo was normal. CT chest PE protocol shows acute pulmonary embolism involving the posterior right lower lobe pulmonary arteries. Lower extremity venous Doppler was found to be negative for DVT. HOSPITAL COURSE: This is a 68-year-old male who reports to me he has a history of prostate cancer, had a radical prostatectomy in the [facility] recently back in October 2018, sees the urologist in the [facility] and is being under his care, comes into the emergency room with complaints of presyncopal episode and very panicky disorder. While here, CT PE protocol was ordered, found to have an acute pulmonary embolism. At that time, the patient was started on Eliquis loading dose 10 mg p.o. b.i.d. and was discharged on oral Eliquis as well. He was also given a free 30-day card in order for him to get for free for 30 days. Hematology/Oncology was consulted. It was felt from a Hematology/Oncology that his underlying pulmonary embolism could be from the history of prostate cancer, but further workup will be needed as an outpatient. I discussed this with Hematology as well. He has been cleared by Hematology/Oncology for discharge and will follow up in his office in about 2 weeks' time, but was advised to continue with oral Eliquis as recommended. Cardiology was consulted and further workup was performed with a carotid ultrasound found to be negative, 2D echo found to be normal. No further cardiac workup was needed. Cardiac enzymes were negative, EKG showed no acute findings. He was cleared for discharge by Cardiology. As for his underlying anxiety, Psychiatry was consulted and they felt that the patient has generalized anxiety disorder. The patient was started on Klonopin 0.5 mg b.i.d. and was advised to follow up in his office in about 1-2 weeks' time. The patient was given a prescription for Klonopin for 2 total weeks, but needs to follow up within the next 1 to 2 weeks with either his PCP or Psychiatry for further management and care due to the fact that these are controlled substances. The patient will also continue with Paxil as per recommendations by Psychiatry. On discharge, the patient was doing well with no other complaints. His anxiety was much improved. He was doing well with oral Eliquis. We discussed the risks and benefits involved with anticoagulation therapy and I advised him in the event he has any kind of bleeding, either rectal bleeding, hematemesis, hematuria, or any sort of bleeding, he was advised to please come to the emergency room for further management and care. He verbalized understanding and agrees with plan of care as described above. This also was described to the family at bedside as well. On the day of discharge, vital signs were stable, labs reviewed and stable. The patient seen and evaluated and examined thoroughly on the day of discharge, no other complaints. The patient verbalized understanding and agreed with the plan of care to follow up accordingly as an outpatient with the primary care physician in 1 week and Hematology/Oncology in 2 weeks and psychiatrist in the next 1-2 weeks' time. The patient verbalized understanding and agrees with plan of care as described above. The patient's blood pressure was elevated, but it was felt to be from his underlying anxiety disorder. Once he was given the Klonopin, his blood pressure improved tremendously. He did go home on low-dose amlodipine 5 mg twice daily and which he was taking at home. I feel like his underlying elevated blood pressure is likely due to his anxiety, which is a big component in this patient. MEDICATIONS: See med reconciliation form. DISPOSITION: Home. CONDITION: Stable. DIET: Heart healthy. In the event of any worsening symptoms, the patient advised to come back to the ED for further evaluation. Discharge summary took greater than 35 minutes. MD KAYLIN Reese/MARIANNE /[id number]
== END 2018-11-25 09:55 | disposition home or self-care (01) ==
LOC: ER 09:58 → ERHOLD 11:24 → IMCU 12:33 → MED/SURG 16:19
PROVIDERS: ADMIT Internal Medicine; ATTEND Internal Medicine
DX: I26.99 Other pulmonary embolism without acute cor pulmonale (principal); I16.0 Hypertensive urgency; F41.1 Generalized anxiety disorder; R55 Syncope and collapse; R53.1 Weakness; Z85.46 Personal history of malignant neoplasm of prostate; I10 Essential (primary) hypertension; Z90.79 Acquired absence of other genital organ(s); F41.0 Panic disorder [episodic paroxysmal anxiety]; T46.7X5A Adverse effect of peripheral vasodilators, initial encounter
CPT/HCPCS: 36415 ×2; 70450; 71260; 80048; 80053 ×2; 80061; 80307; 81001; 82550 ×2; 82553 ×2; 84443; 84484 ×2; 85025 ×3; 85379; 85610; 85730; 93005; 93306; 93880; 93970; 96360; 96361; 99284; G0378 ×3; J2060; J7030; Q9967; J0360

== ENCOUNTER 2018-11-28 10:42 | Emergency (ER) | payer BC, MEDICARE ==
[~2018-11-28] VITALS: Ht 170.2 cm; Wt 75.7 kg
[~2018-11-28 10:42] MED LIST changes: +KLONOPIN0.5 MG; +NORVASC5 MG PO; +PAXIL10 MG
== END 2018-11-28 11:30 | disposition home or self-care (01) ==
LOC: ER 10:42
DX: F41.1 Generalized anxiety disorder (principal)
CPT/HCPCS: 99282

== ENCOUNTER 2020-05-01 11:57 | Emergency (ER) | payer MEDICARE, BC ==
[~2020-05-01] VITALS: Ht 170.2 cm; Wt 75.7 kg
== END 2020-05-01 12:25 | disposition home or self-care (01) ==
LOC: ER 12:19
DX: I10 Essential (primary) hypertension (principal); Z85.46 Personal history of malignant neoplasm of prostate
CPT/HCPCS: 93005; 99282

== ENCOUNTER 2023-12-02 13:02 | Emergency (ER) | payer MEDICARE, BC ==
[~2023-12-02] VITALS: Ht 170.2 cm; Wt 75.7 kg
[2023-12-02 13:13] VITALS: PULSE 88; RESP 16; TEMP 98.7
[2023-12-02 13:30] LABS: BASOPHILS % 0.2 % (0.0-1.0); EOSINOPHILS # (AUTO) 0.1 (0.0-0.4); EOSINOPHILS % 1.2 % (0.0-6.0); HEMATOCRIT 51.8 % (38.2-49.6); HEMOGLOBIN 16.7 g/dL (14.0-18.0); LYMPHOCYTES # (AUTO) 1.4 (1.0-3.2); MEAN CORPUSCULAR HEMOGLOBIN 28.5 pg (28-32); MEAN CORPUSCULAR HGB CONC 32.2 g/dL (31-35); MEAN CORPUSCULAR VOLUME 88.4 fL (81-99); MONOCYTES # (AUTO) 0.4 (0.2-0.8); MONOCYTES % 7.1 % (4.4-11.3); NEUTROPHILS # (AUTO) 3.2 (2.1-6.9); NEUTROPHILS % 63.1 % (38.7-80.0); PLATELET COUNT 141 x10e3/uL (140-360); RED BLOOD COUNT 5.86 x10e6/uL (4.3-5.7); RED CELL DISTRIBUTION WIDTH 13.6 % (11.7-14.4); WHITE BLOOD COUNT 5.08 x10e3/uL (4.8-10.8)
[2023-12-02 13:49] LABS: INR 1.05; PROTHROMBIN TIME 14.2 seconds (11.9-14.5)
[2023-12-02 13:50] LABS: PARTIAL THROMBOPLASTIN TIME 27.5 seconds (23.8-35.5)
[2023-12-02 13:59] LABS: ALBUMIN/GLOBULIN RATIO 1.3 (0.8-2.0); ANION GAP 13.7 mmol/L (8-16); CALCIUM 9.3 mg/dL (8.4-10.2); CREATININE, SERUM 1.28 mg/dL (0.72-1.25); POTASSIUM 3.7 mmol/L (3.5-5.1); TOTAL PROTEIN 7.2 g/dL (6.5-8.1)
[2023-12-02 14:31] VITALS: PULSE 76; RESP 16; O2SAT 100
== END 2023-12-02 14:28 | disposition home or self-care (01) ==
LOC: ER 13:08
DX: K13.0 Diseases of lips (principal); I10 Essential (primary) hypertension; Z85.46 Personal history of malignant neoplasm of prostate
CPT/HCPCS: 36415; 80053; 85025; 85610; 85730; 99283